=== PATIENT | female | born 1980 | race Caucasian/White ===

== ENCOUNTER 2022-05-22 17:58 | Emergency (ER) | payer OTHER ==
[~2022-05-22] VITALS: Ht 157.5 cm; Wt 69.4 kg
--- NOTE | 2022-05-22 18:00 | NUR ---
Placed in room [address] . [address] on court recording monitor, blood pressure machine and pulse oximeter. To gown for exam. Side rails up. Report given to EMA PÉREZ AND EMA CALDWELL.
[2022-05-22 18:05] VITALS: BP_SYST 137
--- NOTE | 2022-05-22 18:05 | NUR ---
PT CAME IN FROM HOME C/O UPPER ABD PAIN RADIATING TO BACK SINCE LAST NIGHT PT WENT TO [facility] AND REFERRED HERE, NAUSEA LAST NIGHT. PT STATES HX GALLSTONES. PT IS AMBULATORY, AAOX4, VSS
--- NOTE | 2022-05-22 18:15 | NUR ---
Patient BIB by spouse, spouse is in lobby. Chief Complaint: Patient complains of abdomen pain exacerbation today with pain at this time rated at 3/10. Patient states hx of gallstones that are present in gallbladder now. Patient a&ox4 and stable. Patient denies Allergies.
--- NOTE | 2022-05-22 18:20 | NUR ---
ER at bedside examining patient.
[2022-05-22] MEDS ORDERED: ACETAMINOPHEN 500 MG TABLET PO ONE (18:30)
[2022-05-22] MEDS ORDERED: MAG-AL HYDROX/SIMETH 30 ML UDC PO ONE (18:30)
[2022-05-22] MEDS ORDERED: LIDOCAINE VISCOUS 2%, 15 ML UDC MM ONE (18:30)
[2022-05-22] MEDS ORDERED: FAMOTIDINE 20 MG TABLET PO ONE (18:30)
--- NOTE | 2022-05-22 18:48 | NUR ---
HCG urine negative at 1825, Urine specimen taken to lab now.
[2022-05-22 18:51] LABS: BASOPHILS % (AUTO) 0.4 % (0.0-2.0); EOSINOPHILS # (AUTO) 0.1 K/uL (0.0-0.4); EOSINOPHILS % (AUTO) 1.1 % (0.0-4.0); HEMATOCRIT 40.1 % (36-48); HEMOGLOBIN 13.4 g/dL (12.0-16.0); LYMPHOCYTES # (AUTO) 1.9 K/uL (1.0-5.5); LYMPHOCYTES % (AUTO) 23.2 % (20.5-51.5); MEAN CORPUSCULAR HEMOGLOBIN 31 pg (27-31); MEAN CORPUSCULAR HGB CONC 34 % (32-36); MEAN CORPUSCULAR VOLUME 91 fL (79.0-98.0); MONOCYTES # (AUTO) 0.4 K/uL (0.0-1.0); MONOCYTES % (AUTO) 4.9 % (1.7-9.3); NEUTROPHILS # (AUTO) 5.9 K/uL (1.8-7.7); NEUTROPHILS % (AUTO) 70.4 % (40.0-70.0); PLATELET COUNT (AUTO) 190 K/uL (130-430); RED BLOOD CELL COUNT(AUTO) 4.39 MIL/uL (4.2-6.2); WHITE BLOOD COUNT (AUTO) 8.3 K/uL (4.8-10.8)
[2022-05-22 18:54] LABS: BILIRUBIN,URINE NEGATIVE (NEGATIVE); BLOOD, URINE NEGATIVE (NEGATIVE); CLARITY/URINE CLEAR (CLEAR); GLUCOSE,URINE NEGATIVE (NEGATIVE); KETONES,URINE NEGATIVE (NEGATIVE); LEUKOCYTE ESTERASE ,URINE NEGATIVE (NEGATIVE); NITRITE, URINE NEGATIVE (NEGATIVE); PROTEIN URINE NEGATIVE (NEGATIVE); UROBILINOGEN,URINE 0.2 (0.2-1.0)
[2022-05-22 18:56] LABS: COLOR,URINE STRAW (YELLOW)
[2022-05-22 19:06] LABS: ALBUMIN 3.8 g/dL (3.4-4.8); CALCIUM 8.7 mg/dL (8.4-11.0); CREATININE 0.66 mg/dL (0.55-1.30); TOTAL BILIRUBIN 0.2 mg/dL (0.0-1.0)
--- NOTE | 2022-05-22 19:16 | NUR ---
4 medications administered as ordered. GI cocktail, tylenol, and pepcid.
--- NOTE | 2022-05-22 19:26 | NUR ---
US at bedside
--- NOTE | 2022-05-22 19:26 | NUR ---
Report given to SU Chamberlain
[2022-05-22] MEDS ORDERED: ONDA-8 TL (20:39)
[2022-05-22] MEDS ORDERED: FAMO20TA8 PO (20:39)
[2022-05-22] MEDS ORDERED: ACET-2634 PO (20:39)
[2022-05-22 20:59] VITALS: BP_SYST 122
--- NOTE | 2022-05-22 20:59 | NUR ---
Patient given written and verbal discharge instructions and verbalizes understanding. ER MD discussed with patient the results and treatment provided. Patient in stable condition. ID arm band removed. Rx of TYLENOL PEPCID AND ZOFRAN given. Patient educated on pain management and to follow up with PMD. Pain Scale 0/10 Opportunity for questions provided and answered. Medication side effect fact sheet provided.
== END 2022-05-22 20:59 | disposition home or self-care (01) ==
LOC: SED 17:58
DX: K80.20 Calculus of gallbladder without cholecystitis without obstruction (principal); K21.9 Gastro-esophageal reflux disease without esophagitis; R10.13 Epigastric pain; R11.0 Nausea; R19.7 Diarrhea, unspecified; Z79.899 Other long term (current) drug therapy
CPT/HCPCS: 99284; 76705; 80053; 83690; 85025; 36415; 81025; 81003; J2001

== ENCOUNTER 2023-07-01 15:17 | Emergency (ER) | payer OTHER ==
[~2023-07-01] VITALS: Ht 157.5 cm; Wt 70.3 kg
[~2023-07-01 15:17] MED LIST: ACET-2634 PO; FAMO20TA8 PO; ONDA-8 TL
[2023-07-01 15:30] VITALS: BP_SYST 138; PULSE 74; RESP 18; TEMP 98.3; O2SAT 98
[2023-07-01 16:06] LABS: BILIRUBIN,URINE NEGATIVE (NEGATIVE); CLARITY/URINE SL CLOUDY (CLEAR); COLOR,URINE YELLOW (YELLOW); GLUCOSE,URINE NEGATIVE (NEGATIVE); KETONES,URINE NEGATIVE (NEGATIVE); LEUKOCYTE ESTERASE ,URINE NEGATIVE (NEGATIVE); NITRITE, URINE NEGATIVE (NEGATIVE); PROTEIN URINE NEGATIVE (NEGATIVE); UROBILINOGEN,URINE 0.2 (0.2-1.0)
[2023-07-01 16:11] LABS: BASOPHILS # (AUTO) 0.1 K/uL (0.0-0.2); BASOPHILS % (AUTO) 0.6 % (0.0-2.0); EOSINOPHILS # (AUTO) 0.1 K/uL (0.0-0.4); EOSINOPHILS % (AUTO) 0.8 % (0.0-4.0); HEMATOCRIT 39.1 % (36-48); HEMOGLOBIN 13.3 g/dL (12.0-16.0); LYMPHOCYTES # (AUTO) 1.6 K/uL (1.0-5.5); LYMPHOCYTES % (AUTO) 12.9 % (20.5-51.5); MEAN CORPUSCULAR HEMOGLOBIN 31 pg (27-31); MEAN CORPUSCULAR HGB CONC 34 % (32-36); MEAN CORPUSCULAR VOLUME 91 fL (79.0-98.0); MONOCYTES # (AUTO) 0.6 K/uL (0.0-1.0); NEUTROPHILS # (AUTO) 10.3 K/uL (1.8-7.7); NEUTROPHILS % (AUTO) 80.7 % (40.0-70.0); PLATELET COUNT (AUTO) 209 K/uL (130-430); RED CELL DISTRIBUTION WIDTH 13.5 % (9.0-15.0); WHITE BLOOD COUNT (AUTO) 12.8 K/uL (4.8-10.8)
[2023-07-01 16:23] LABS: ALBUMIN 3.8 g/dL (3.4-4.8); BILIRUBIN,DIRECT 0.2 mg/dL (0.0-0.3); CALCIUM 8.3 mg/dL (8.4-11.0); CREATININE 0.74 mg/dL (0.55-1.30); TOTAL BILIRUBIN 0.4 mg/dL (0.0-1.0); TOTAL PROTEIN, SERUM 7.5 g/dL (6.4-8.3)
[2023-07-01 16:46] LABS: BLOOD, URINE TRACE (NEGATIVE)
[2023-07-01 16:56] LABS: BACTERIA,URINE FEW /HPF (None Seen)
[2023-07-01 16:57] LABS: URINE AMORPHOUS PHOSPHATES 2+ /HPF (None Seen)
[2023-07-01 16:58] LABS: WBC,URINE 0-3 /HPF (0-3)
[2023-07-01 17:35] VITALS: BP_SYST 138; PULSE 74; RESP 18; TEMP 98.3; O2SAT 98
== END 2023-07-01 17:50 | disposition home or self-care (01) ==
LOC: SED 15:17
DX: K80.20 Calculus of gallbladder without cholecystitis without obstruction (principal); K80.50 Calculus of bile duct without cholangitis or cholecystitis without obstruction; R10.31 Right lower quadrant pain; Z79.899 Other long term (current) drug therapy
CPT/HCPCS: 36415; 80048; 80076; 81000; 81001; 81015; 81025; 83690; 85025; 99284